=== PATIENT | female | born 1980 | race Hispanic/Latino ===

== ENCOUNTER → 2020-06-16 | Outpatient (CLI) | payer OTHER | LOC: DX 10:25 | PROVIDERS: ATTEND Surgery | DX: Z01.818 Encounter for other preprocedural examination (principal); K21.9 Gastro-esophageal reflux disease without esophagitis; Z98.84 Bariatric surgery status | CPT/HCPCS: 74246; 81025; 93005 ==

== ENCOUNTER 2021-11-27 14:35 | Emergency (ER) | payer OTHER ==
[~2021-11-27] VITALS: Ht 160 cm; Wt 77.3 kg
[2021-11-27] MEDS ORDERED: VENLAFAXINE HCL75 MG PO (15:04)
[2021-11-27] MEDS ORDERED: OMEPRAZOLE40 MG PO (15:04)
[2021-11-27] MEDS ORDERED: CALCIUM CARBON200 MG (15:04)
[2021-11-27] MEDS ORDERED: IRON159 MG (15:04)
[2021-11-27] MEDS ORDERED: LABETALOL HCL100 MG PO (15:04)
== END 2021-11-27 16:17 | disposition home or self-care (01) ==
LOC: FSED 15:28
DX: R00.2 Palpitations (principal); R06.02 Shortness of breath; I10 Essential (primary) hypertension; K21.9 Gastro-esophageal reflux disease without esophagitis; F41.9 Anxiety disorder, unspecified; Z98.84 Bariatric surgery status; F17.210 Nicotine dependence, cigarettes, uncomplicated
CPT/HCPCS: 71045; 80053; 82553; 84484; 85025; 93005; 99284

== ENCOUNTER 2022-09-11 12:32 | Emergency (ER) | payer OTHER ==
[~2022-09-11] VITALS: Ht 160 cm; Wt 72.6 kg
[~2022-09-11 12:32] MED LIST: BUPROPION XL150 MG PO; CALCIUM CARBON200 MG; IRON159 MG; LABETALOL HCL100 MG PO; OMEPRAZOLE40 MG PO; VENLAFAXINE HCL75 MG PO
[2022-09-11] MEDS ORDERED: ALBUTEROL/IPRATROPIUM 3 ML NEB NEB ONE (13:30)
[2022-09-11] MEDS ORDERED: PREDNISONE 20 MG TAB PO ONE (15:30)
[2022-09-11] MEDS ORDERED: AMOX TR-K CLV1 EAC2 PO (15:32)
[2022-09-11] MEDS ORDERED: PREDNISONE20 MG PO (15:35)
[2022-09-11] MEDS ORDERED: PREDNISONE 20 MG TAB ONE (15:38)
[2022-09-11] MEDS ORDERED: PROVENTIL HFA6.7 GM INH (15:40)
[2022-09-11 15:58] VITALS: BP 128/71; PULSE 72; RESP 17; TEMP 97.8; O2SAT 97
== END 2022-09-11 16:10 | disposition home or self-care (01) ==
LOC: FSED 12:34
DX: R05.9 Cough, unspecified (principal); J20.9 Acute bronchitis, unspecified; I10 Essential (primary) hypertension; Z98.84 Bariatric surgery status
CPT/HCPCS: 71046; 81025; 83518; 87400; 99283; J7512

== ENCOUNTER 2023-01-25 09:38 | Emergency (ER) | payer OTHER ==
[~2023-01-25] VITALS: Ht 160 cm; Wt 72.6 kg
[~2023-01-25 09:38] MED LIST changes: +AMOX TR-K CLV1 EAC2 PO; +PREDNISONE20 MG PO; +PROVENTIL HFA6.7 GM INH
[2023-01-25] MEDS ORDERED: FAMOTIDINE 20 MG/2 ML VIAL IV STA (10:22)
[2023-01-25] MEDS ORDERED: DICYCLOMINE HCL 20 MG/2 ML VIAL IM ONE (10:30)
[2023-01-25] MEDS ORDERED: LACTATED RINGER'S 1,000 ML INJ ONE (10:30)
[2023-01-25 10:31] LABS: BASOPHILS # (AUTO) 0.1 (0.0-0.1); BASOPHILS % 0.6 % (0.0-1.0); EOSINOPHILS # (AUTO) 0.3 (0.0-0.4); EOSINOPHILS % 3.6 % (0.0-6.0); HEMATOCRIT 38.5 % (34.2-44.1); HEMOGLOBIN 12.9 g/dL (12.0-16.0); LYMPHOCYTES # (AUTO) 1.5 (1.0-3.2); LYMPHOCYTES % 18.1 % (18.0-39.1); MEAN CORPUSCULAR HEMOGLOBIN 28.2 pg (28-32); MEAN CORPUSCULAR HGB CONC 33.5 g/dL (31-35); MEAN CORPUSCULAR VOLUME 84.2 fL (81-99); MONOCYTES # (AUTO) 0.6 (0.2-0.8); MONOCYTES % 7.2 % (4.4-11.3); NEUTROPHILS # (AUTO) 5.5 (2.1-6.9); NEUTROPHILS % 69.3 % (38.7-80.0); PLATELET COUNT 257 x10e3/uL (140-360); RED BLOOD COUNT 4.57 x10e6/uL (3.6-5.1); RED CELL DISTRIBUTION WIDTH 12.6 % (11.7-14.4); WHITE BLOOD COUNT 8.01 x10e3/uL (4.8-10.8)
[2023-01-25 11:05] LABS: ALBUMIN 3.6 g/dL (3.5-5.0); ALBUMIN/GLOBULIN RATIO 1.2 (0.8-2.0); ANION GAP 11.2 mmol/L (8-16); CALCIUM 8.9 mg/dL (8.4-10.2); CREATININE, SERUM 0.72 mg/dL (0.57-1.11); POTASSIUM 4.2 mmol/L (3.5-5.1)
[2023-01-25 11:15] LABS: CLARITY,URINE SL CLOUDY (CLEAR); COLOR,URINE YELLOW (YELLOW); KETONES,URINE TRACE (NEGATIVE); LEUKOCYTE ESTERASE ,URINE NEGATIVE (NEGATIVE); NITRITE,URINE NEGATIVE (NEGATIVE); PROTEIN,URINE DIPSTICK 1+ (NEGATIVE); URINE UROBILINOGEN 1 mg/dL (0.2 - 1)
[2023-01-25 11:46] LABS: BACTERIA,URINE MODERATE /HPF; CALCIUM OXALATE CRYSTALS,UR FEW (FEW); EPITHELIAL CELLS,URINE RARE /LPF; WBC,URINE (MAN) 0-5 /HPF (0-5)
[2023-01-25] MEDS ORDERED: ULTRAM 50MG50 MG PO (12:17)
[2023-01-25] MEDS ORDERED: PEPCID20 MG PO (12:19)
[2023-01-25 12:32] VITALS: BP 131/92; PULSE 85; RESP 20; O2SAT 99
[2023-01-25] MEDS ORDERED: IOPAMIDOL 370 MG/ML 100 ML INFUS..BTL INJ ONE (14:07)
== END 2023-01-25 12:43 | disposition home or self-care (01) ==
LOC: ER 09:40
DX: R10.13 Epigastric pain (principal); K80.20 Calculus of gallbladder without cholecystitis without obstruction; K21.9 Gastro-esophageal reflux disease without esophagitis; F41.9 Anxiety disorder, unspecified; Z98.84 Bariatric surgery status; Z87.19 Personal history of other diseases of the digestive system
CPT/HCPCS: 36415; 74177; 80053; 81001; 81025; 83690; 85025; 99284; C9113; J0500; J7121; Q9967